=== PATIENT | male | born 1975 | race American Indian/Alaskan Native ===

== ENCOUNTER 2018-03-13 17:51 | Emergency (ER) | payer OTHER ==
[2018-03-13] MEDS ORDERED: XYLOCAINE 2% INFILTRATI ONE (22:55)
--- NOTE | 2018-03-13 23:33 | Emergency Department Report ---
ED Laceration HPI - HPI Chief Complaint: Wound/Laceration Stated Complaint: MOUTH LACERATION Time Seen by Provider: 03/13/18 23:28 Occurred When: Today Severity: mild Tetanus Status: Up to Date Laceration Symptoms: No Foreign Body Sensation, No Numbness, No Weakness, No Pain Other History: 42-year-old -English male brought in from [facility] didn't intervention for a 1 cm laceration to the left side upper lip while playing basketball. Patient denies falling hitting his head or loss of consciousness. Patient reports that he is up-to-date in all his vaccines. Patient denies any nausea vomiting or change in vision. ED Review of Systems ROS: Stated complaint: MOUTH LACERATION Other details as noted in HPI Skin: other (cut to the left upper lip) ED Past Medical Hx - Past Medical History Previous Medical History?: No - Surgical History Past Surgical History?: No - Social History Smoking Status: Current Some Day Smoker Substance Use Type: None Laceration Physical Exam - Exam General: Vital signs noted. No distress. Alert and acting appropriately. Wound Length (cm): 2 (left upper lip) Laceration Location: Other (left upper lip) Laceration Exam: Yes Normal Distal CMS, No Foreign Body, No Exposed Tendon, Vessel, or Nerve, No Tendon Injury ED Course Vital Signs 03/13/18 18:13 Temperature 98.7 F Pulse Rate 62 Respiratory 16 Rate Blood Pressure 157/93 O2 Sat by Pulse 98 Oximetry - Laceration /Wound Repair Left Upper Face Wound Location: head (left upper lip) Wound's Depth, Shape: linear Wound Explored: clean Irrigated w/ Saline (ccs): 45 Betadine Prep?: Yes Anesthesia: 1% Lidocaine (3) Wound Debrided: minimal Wound Repaired With: sutures Suture Size/Type: 4:0 Number of Sutures: 3 Deep Layer Suture Size/Type: 4:0, gut Sterile Dressing Applied?: No Progress: Patient tolerated procedure well ED Medical Decision Making - Medical Decision Making Patient has been evaluated by this provider fast track. Suture repair to left upper lip with absorbable sutures 3 sutures were placed Discussed patient did not bite on the sutures they should dissolve in a few days. Return back to medical if there is any signs of infection. Critical care attestation.: If time is entered above; I have spent that time in minutes in the direct care of this critically ill patient, excluding procedure time. ED Disposition Clinical Impression: Laceration of upper lip, complicated Qualifiers: Encounter type: initial encounter Qualified Code(s): S01.511A - Laceration without foreign body of lip, initial encounter Disposition: TO HOME OR SELFCARE Is pt being admited?: No Does the pt Need Aspirin: No Condition: Stable Instructions: Absorbable Suture Care (ED), Laceration (ED) Additional Instructions: Please do not bite on sutures and they should dissolve in a few days. Please return to medical if there is any signs of infection such as swelling painful redness or purulent discharge. Referrals: PRIMARY CARE, [Primary Care Provider] - 3-5 Days Forms: Work/School Release Form(ED)
[2018-03-14 00:56] VITALS: BP 155/90
== END 2018-03-13 23:45 | disposition home or self-care (01) ==
LOC: ED 17:51
DX: S01.511A Laceration without foreign body of lip, initial encounter (principal); F17.200 Nicotine dependence, unspecified, uncomplicated; W21.05XA Struck by basketball, initial encounter; Y93.67 Activity, basketball; Y92.89 Other specified places as the place of occurrence of the external cause; Y99.8 Other external cause status